=== PATIENT | female | born 1990 | race Caucasian/White ===

== ENCOUNTER 2017-11-01 07:02 | Inpatient (IN) | payer OTHER ==
[2017-11-01] MEDS ORDERED: Ondansetron 4 MG/2 ML SDV IVPUSH PRN ×2 (07:51→09:00)
[2017-11-01] MEDS ORDERED: Sodium Chloride 0.9% 10 ML Syringe FLUSH PRN (07:51)
[2017-11-01] MEDS ORDERED: Oxytocin/Lactated Ringers 10 UNIT/1,000 ML BAG IV SCH ×3 (08:00→21:34)
--- NOTE | 2017-11-01 08:03 | PCM.LDHP ---
L&D History of Present Illness - General Date of Service: 11/01/17 Admit Problem/Dx: Patient Status Order with Admit Dx/Problem 11/01/17 07:51 Patient Status [ADT] Routine Admission Diagnosis/Problem Admission Diagnosis/Problem History of delivery affecting Source of Information: Patient History Limitations: Reports: No Limitations - History of Present Illness Introduction:: Chary Emanuel is a 27 year old at 41 weeks 2 days by LMP consistent with 7 week ultrasound who presents for trial labor after section. Her previous section was done at 40 weeks' gestational age for breech presentation without labor. She reports that recently she has had continued contractions but nothing regular. She thinks that she may have lost her mucous plug yesterday but no watery vaginal discharge. Denies any vaginal bleeding. Reports good movement. Timing/Duration: Reports: intermittent Location, : Reports: Abdomen, Pelvic Quality: Reports: Pressure Severity: Mild Improves with: Reports: None Worsens with: Reports: None Associated Symptoms: Denies: vaginal bleeding, vaginal discharge, vaginal fluid Present Illness Comments:: Chary Emanuel is a 27 year old at 41 weeks 2 days by LMP and consistent with 7 week ultrasound. She has had routine care since 7 weeks gestational age. Her initial labs showed O+ blood type with negative antibody screen. Her hematocrit was 39.2 and hemoglobin of 13.1 on 04/08/2017. Her platelets were 242. Her Pap smear at that time was LGSIL and she underwent colposcopy that was consistent with YARY-1 with plan for repeat after delivery. She is rubella immune. RPR was nonreactive. She had a negative hepatitis B surface antigen negative HIV. Her urine culture was negative. She was negative for gonorrhea and chlamydia. She had a normal anatomy scan. Her 1 hour glucose tolerance screen was 103. Recheck of her blood count on showed hematocrit of 34.6 and hemoglobin 11.3 with platelets of 211. Her GBS was negative. Her has been complicated by history of section desiring a trial of labor. Initial section was done for breech presentation with failed external cephalic version. Other complications include L CHICA Pap smear with colposcopy performed in suspected YARY -1. Plan is to repeat after delivery. She has a history of rheumatic fever as a child without any cardiac complications. She received TDaP vaccine on 2017. - Related Data Allergies/Adverse Reactions: Allergies Allergy/AdvReac Type Severity Reaction Status Date / Time No Known Allergies Allergy Verified 11/01/17 08:28 Past Medical History : 2 Para: 1 Immunologic History: Reports: Other (See Below) (Rheumatic fever as child) - Past Surgical History Female Surgical History: Reports: Section Social & Family History - Tobacco Use Smoking Status *Q: Never Smoker - Alcohol Use Alcohol Use History: No - Recreational Drug Use Recreational Drug Use: No H&P Review of Systems - Review of Systems: Review Of Systems: See Below General: Denies: Fever, Chills HEENT: Denies: Hearing Changes, Rhinitis, Post Nasal Drip, Sinus Congestion, Sore Throat, Visual Changes Pulmonary: Denies: Shortness of Breath, Wheezing, Cough Cardiovascular: Denies: Chest Pain, Palpitations Gastrointestinal: Denies: Abdominal Pain, Constipation, Diarrhea, Nausea, Vomiting Genitourinary: Denies: Dysuria, Frequency, Burning, Pain, Urgency Musculoskeletal: Reports: Arm Pain (For one day yesterday, resolved spontaneously). Denies: Back Pain Skin: Denies: Rash, Change in Color Psychiatric: Denies: Depression, Anxiety Neurological: Denies: Headache Hematologic/Lymphatic: Denies: Anemia, Easy Bleeding L&D Exam - Exam Exam: See Below - OB Specific Contraction Duration (sec): 0 Contraction Frequency (min): 0 Movement: Active Heart Tones: Present Heart Tones per Min: 130 (positive 15 x 15 accelerations) Heart Rate (FHR) Variability: Moderate (6-25 bmp) Presentation: Vertex Estimated Weight: 7.5-8 lbs by [place] - Jeffrey Score Jeffrey Score Cervix Position: Midposition Jeffrey Score Consistency: Medium Jeffrey Score Effacement: >80% Jeffrey Score Dilation: 1-2 cm Jeffrey Score Infant's Station: -3 Jeffrey Score Total: 6 - Exam General: Alert, Oriented HEENT: Conjunctiva Clear, EOMI Neck: Supple, Trachea Midline Lungs: Clear to Auscultation, Normal Respiratory Effort Cardiovascular: Regular Rate, Regular Rhythm GI/Abdominal Exam: Soft, Non-Tender, No Distention, Other (gravid). No: Guarding, Rigid, Rebound Genitourinary: Normal external exam, Other (16 [place] De Paz bulb placed manually through the cervix and filled with 50 mL of sterile water.) Back Exam: Normal Inspection, Full Range of Motion Extremities: Normal Inspection, No Pedal Edema Skin: Warm, Dry, Intact Psychiatric: Alert, Normal Affect, Normal Mood - Patient Data Result Diagrams: 11/01/17 08:30 - Problem List (1) 41 weeks gestation of SNOMED Code(s): 49894083 ICD Code: Z3A.41 - 41 WEEKS GESTATION OF Status: Acute Current Visit: Yes (2) History of section, low transverse SNOMED Code(s): 070029649 ICD Code: Z98.891 - HISTORY OF UTERINE SCAR FROM PREVIOUS SURGERY Status: Acute Current Visit: Yes (3) History of rheumatic fever SNOMED Code(s): 694281459 ICD Code: Z86.79 - PERSONAL HISTORY OF OTHER DISEASES OF THE CIRCULATORY SYSTEM Status: Acute Current Visit: Yes (4) Abnormal Pap smear of cervix SNOMED Code(s): 266220280 ICD Code: R87.619 - UNSP ABNORMAL CYTOLOG FINDINGS IN SPECMN FROM CERVIX UTERI Status: Acute Current Visit: Yes Problem List Initiated/Reviewed/Updated: Yes Orders Last 24hrs: Active Orders 24 hr Category Date Time Status Patient Status [ADT] Routine ADT 11/01/17 07:51 Ordered Activity as Tolerated [RC] PFP Care 11/01/17 07:51 Ordered Communication Order [RC] ASDIRECTED Care 11/01/17 07:51 Ordered Heart Tones [RC] ASDIRECTED Care 11/01/17 07:52 Ordered Notify Provider Vital Signs [RC] PRN Care 11/01/17 07:53 Ordered Notify Provider [RC] PFP Care 11/01/17 07:51 Ordered Notify Provider [RC] PRN Care 11/01/17 07:51 Ordered Peripheral IV Care [RC] . DIRECTED Care 11/01/17 07:52 Ordered Pump Management, Intrathecal [RC] ASDIRECTED Care 11/01/17 07:53 Ordered Urinary Catheter Assessment [RC] ASDIRECTED Care 11/01/17 07:51 Ordered Vital Signs [RC] PER UNIT ROUTINE Care 11/01/17 07:51 Ordered Regular Diet [DIET] Diet 11/01/17 Breakfast Ordered CBC W/O DIFF,HEMOGRAM [HEME] Routine Lab 11/01/17 07:51 Ordered RAPID PLASMA REAGIN,RPR [CHEM] Routine Lab 11/01/17 07:55 Ordered TYPE AND SCREEN [BBK] Routine Lab 11/01/17 07:51 Ordered Lactated Ringers [Ringers, Lactated] 1,000 ml Med 11/01/17 08:00 Ordered IV ASDIRECTED Ondansetron [Zofran] Med 11/01/17 07:51 Ordered 4 mg IVPUSH Q4H PRN Oxytocin/Lactated Ringers [Pitocin in LR 10 Units/1,000 Med 11/01/17 08:00 Ordered ML] 10 unit in 1,000 ml IV .CONTINUOUS Oxytocin/Lactated Ringers [Pitocin in LR 10 Units/1,000 Med 11/01/17 08:00 Ordered ML] 10 unit in 1,000 ml IV TITRATE Sodium Chloride 0.9% [Saline Flush] Med 11/01/17 07:51 Ordered 10 ml FLUSH ASDIRECTED PRN Electronic Heart Tones Ext w TOCO [WOMSER] Oth 11/01/17 07:51 Ordered Routine Electronic Heart Tones Internal [WOMSER] Per Unit Oth 11/01/17 07:51 Ordered Routine Peripheral IV Insertion Adult [OM.PC] Routine Oth 11/01/17 07:51 Ordered Resuscitation Status Routine Resus Stat 11/01/17 07:51 Ordered Medication Orders Lactated Ringer's (Ringers, Lactated) 1,000 mls @ 100 mls/hr IV ASDIRECTED FLAVIO Oxytocin/Lactated Ringer's (Pitocin In Lr 10 Units/1,000 Ml) 10 unit in 1,000 mls @ 100 mls/hr IV .CONTINUOUS FLAVIO Oxytocin/Lactated Ringer's (Pitocin In Lr 10 Units/1,000 Ml) 10 unit in 1,000 mls @ 12 mls/hr IV TITRATE FLAVIO; Protocol Ondansetron HCl (Zofran) 4 mg IVPUSH Q4H PRN PRN Reason: Nausea/Vomiting Sodium Chloride (Saline Flush) 10 ml FLUSH ASDIRECTED PRN PRN Reason: Keep Vein Open Assessment/Plan Comment:: Refer to observation for elective induction of labor Start induction of labor with Pitocin and increase per unit protocol. De Paz bulb placed during exam for mechanical dilation Continuous monitoring during induction of labor Place IV and have Lactated Ringer's at 125 ml/hr May have small amounts of regular diet during induction Activity as tolerated May have epidural as desired Plans to breast-feed after delivery Anticipate vaginal delivery unless otherwise indicated Jostin Lee M.D. 9:15 AM 11/01/2017
[2017-11-01] MEDS ORDERED: fentaNYL 100 MCG/2 ML SDV EPIDUR PRN (09:00)
[2017-11-01] MEDS ORDERED: ePHEDrine 50 MG/ML SDV IVPUSH PRN (09:00)
[2017-11-01] MEDS ORDERED: diphenhydrAMINE 50 MG/ML SDV IVPUSH PRN (09:00)
[2017-11-01] MEDS ORDERED: Bupivacaine/fentaNYL/NS 100 ML Bag EPIDUR SCH ×2 (09:00→17:15)
--- NOTE | 2017-11-01 09:03 | PCM.PREANE ---
Preanesthetic Assessment - Review of Systems General: No Symptoms Pulmonary: No Symptoms Cardiovascular: No Symptoms, Other (Rheumatic Fever as a child. Patient states her heart valves were checked and she does not have any problems. ) Gastrointestinal: No Symptoms Neurological: Other (Back pain with ) Other: Reports: None - Physical Assessment ASA Class: 2 Mental Status: Alert & Oriented x3 Airway Class: Mallampati = 1 Dentition: Reports: Caries (Black at gumline.) Thyro-Mental Finger Breadths: 3 Mouth Opening Finger Breadths: 3 ROM/Head Extension: Full Lungs: Clear to Auscultation, Normal Respiratory Effort Cardiovascular: Regular Rate, Regular Rhythm - Lab Values: Laboratory Last Values WBC 7.43 K/mm3 (3.98-10.04) 11/01/17 08:30 RBC 3.86 M/mm3 (3.98-5.22) L 11/01/17 08:30 Hgb 10.9 gm/L (11.2-15.7) L 11/01/17 08:30 Hct 32.8 % (34.1-44.9) L 11/01/17 08:30 MCV 85.0 fl (79.4-94.8) 11/01/17 08:30 MCH 28.2 pg (25.6-32.2) 11/01/17 08:30 MCHC 33.2 g/dl (32.2-35.5) 11/01/17 08:30 RDW Std Deviation 41.6 fL (36.4-46.3) 11/01/17 08:30 Plt Count 180 K/mm3 (182-369) L 11/01/17 08:30 MPV 12.3 fl (9.4-12.3) 11/01/17 08:30 - Allergies Allergies/Adverse Reactions: Allergies Allergy/AdvReac Type Severity Reaction Status Date / Time No Known Allergies Allergy Verified 11/01/17 08:28 - Acknowledgements Anesthesia Type Planned: Epidural Pt an Appropriate Candidate for the Planned Anesthesia: Yes Alternatives and Risks of Anesthesia Discussed w Pt/Guardian: Yes Pt/Guardian Understands and Agrees with Anesthesia Plan: Yes PreAnesthesia Questionnaire Immunologic History: Reports: Other (See Below) (Rheumatic fever as child) - Past Surgical History Female Surgical History: Reports: Section - SUBSTANCE USE Smoking Status *Q: Never Smoker Recreational Drug Use History: No - CURRENT (IN HOUSE) MEDS Current Meds: Current Medications Lactated Ringer's (Ringers, Lactated) 1,000 mls @ 100 mls/hr IV ASDIRECTED FLAVIO Oxytocin/Lactated Ringer's (Pitocin In Lr 10 Units/1,000 Ml) 10 unit in 1,000 mls @ 100 mls/hr IV .CONTINUOUS FLAVIO Oxytocin/Lactated Ringer's (Pitocin In Lr 10 Units/1,000 Ml) 10 unit in 1,000 mls @ 12 mls/hr IV TITRATE FLAVIO; Protocol Ondansetron HCl (Zofran) 4 mg IVPUSH Q4H PRN PRN Reason: Nausea/Vomiting Sodium Chloride (Saline Flush) 10 ml FLUSH ASDIRECTED PRN PRN Reason: Keep Vein Open
[2017-11-01] MEDS: Lactated Ringers 1,000 ML IV SCH ×3 (11:27→19:15)
--- NOTE | 2017-11-01 13:11 | PCM.PREANE ---
Preanesthetic Assessment - Anesthesia/Transfusion/Family Hx Anesthesia History: Prior Anesthesia Without Reaction Family History of Anesthesia Reaction: No - Review of Systems General: No Symptoms Pulmonary: No Symptoms Cardiovascular: No Symptoms Gastrointestinal: No Symptoms Neurological: Other (Back pain with .) Other: Reports: None - Physical Assessment Pulse: 88 O2 Sat by Pulse Oximetry: 98 Respiratory Rate: 16 Blood Pressure: 141/91 Height: 1.73 m Weight: 111.402 kg ASA Class: 2 Mental Status: Alert & Oriented x3 Airway Class: Mallampati = 2 Dentition: Reports: Missing Tooth/Teeth, Caries (Black decay noted at gumline) Thyro-Mental Finger Breadths: 3 Mouth Opening Finger Breadths: 3 ROM/Head Extension: Full Lungs: Clear to Auscultation, Normal Respiratory Effort Cardiovascular: Regular Rate, Regular Rhythm - Lab Values: Laboratory Last Values WBC 7.43 K/mm3 (3.98-10.04) 11/01/17 08:30 RBC 3.86 M/mm3 (3.98-5.22) L 11/01/17 08:30 Hgb 10.9 gm/L (11.2-15.7) L 11/01/17 08:30 Hct 32.8 % (34.1-44.9) L 11/01/17 08:30 MCV 85.0 fl (79.4-94.8) 11/01/17 08:30 MCH 28.2 pg (25.6-32.2) 11/01/17 08:30 MCHC 33.2 g/dl (32.2-35.5) 11/01/17 08:30 RDW Std Deviation 41.6 fL (36.4-46.3) 11/01/17 08:30 Plt Count 180 K/mm3 (182-369) L 11/01/17 08:30 MPV 12.3 fl (9.4-12.3) 11/01/17 08:30 Blood Type O POSITIVE 11/01/17 08:30 Gel Antibody Screen Negative 11/01/17 08:30 - Allergies Allergies/Adverse Reactions: Allergies Allergy/AdvReac Type Severity Reaction Status Date / Time No Known Allergies Allergy Verified 11/01/17 08:28 - Blood Blood Available: Yes - Acknowledgements Anesthesia Type Planned: Epidural Pt an Appropriate Candidate for the Planned Anesthesia: Yes Alternatives and Risks of Anesthesia Discussed w Pt/Guardian: Yes Pt/Guardian Understands and Agrees with Anesthesia Plan: Yes PreAnesthesia Questionnaire Immunologic History: Reports: Other (See Below) (Rheumatic fever as child) - Past Surgical History Female Surgical History: Reports: Section - SUBSTANCE USE Smoking Status *Q: Never Smoker Recreational Drug Use History: No - CURRENT (IN HOUSE) MEDS Current Meds: Current Medications Diphenhydramine HCl (Benadryl) 25 mg IVPUSH Q6H PRN PRN Reason: Pruritis Ephedrine Sulfate (Ephedrine Sulfate) 5 mg IVPUSH ASDIRECTED PRN PRN Reason: Hypotension Fentanyl (Sublimaze) 100 mcg EPIDUR ONETIME PRN PRN Reason: Pain Fentanyl/Bupivacaine HCl (Fentanyl/Bupivacaine/Ns 2 Mcg-0.125% 100 Ml) 100 ml EPIDUR ASDIRECTED FLAVIO Lactated Ringer's (Ringers, Lactated) 1,000 mls @ 100 mls/hr IV ASDIRECTED FLAVIO Last Admin: 11/01/17 11:27 Dose: 100 mls/hr Oxytocin/Lactated Ringer's (Pitocin In Lr 10 Units/1,000 Ml) 10 unit in 1,000 mls @ 100 mls/hr IV .CONTINUOUS FLAVIO Oxytocin/Lactated Ringer's (Pitocin In Lr 10 Units/1,000 Ml) 10 unit in 1,000 mls @ 12 mls/hr IV TITRATE FLAVIO; Protocol Last Titration: 11/01/17 12:30 Dose: 6 munits/min, 36 mls/hr Ondansetron HCl (Zofran) 4 mg IVPUSH Q4H PRN PRN Reason: Nausea/Vomiting Ondansetron HCl (Zofran) 4 mg IVPUSH ONETIME PRN PRN Reason: Nausea/Vomiting Sodium Chloride (Saline Flush) 10 ml FLUSH ASDIRECTED PRN PRN Reason: Keep Vein Open
[2017-11-01] MEDS ORDERED: Pneumococcal Polyvalent-23 Vaccine 0.5 ML SDV IM ONE (18:34)
--- NOTE | 2017-11-01 19:15 | PCM.PNLD ---
Labor Progress Note - VS & Meds Vital Signs: Last Vital Signs Temp 36.3 C 11/01/17 09:15 Pulse 88 11/01/17 13:10 Resp 16 11/01/17 13:10 BP 141/91 H 11/01/17 13:10 Pulse Ox 98 11/01/17 13:10 Active Medications: Current Medications Diphenhydramine HCl (Benadryl) 25 mg IVPUSH Q6H PRN PRN Reason: Pruritis Last Admin: 11/01/17 18:00 Dose: 25 mg Ephedrine Sulfate (Ephedrine Sulfate) 5 mg IVPUSH ASDIRECTED PRN PRN Reason: Hypotension Fentanyl (Sublimaze) 100 mcg EPIDUR ONETIME PRN PRN Reason: Pain Last Admin: 11/01/17 17:30 Dose: 100 mcg Fentanyl/Bupivacaine HCl (Fentanyl/Bupivacaine/Ns 2 Mcg-0.125% 100 Ml) 100 ml EPIDUR ASDIRECTED FLAVIO Last Admin: 11/01/17 17:30 Dose: 100 ml Lactated Ringer's (Ringers, Lactated) 1,000 mls @ 100 mls/hr IV ASDIRECTED FLAVIO Last Admin: 11/01/17 16:37 Dose: 100 mls/hr Oxytocin/Lactated Ringer's (Pitocin In Lr 10 Units/1,000 Ml) 10 unit in 1,000 mls @ 100 mls/hr IV .CONTINUOUS FLAVIO Oxytocin/Lactated Ringer's (Pitocin In Lr 10 Units/1,000 Ml) 10 unit in 1,000 mls @ 12 mls/hr IV TITRATE FLAVIO; Protocol Last Titration: 11/01/17 18:20 Dose: 10 munits/min, 60 mls/hr Ondansetron HCl (Zofran) 4 mg IVPUSH Q4H PRN PRN Reason: Nausea/Vomiting Ondansetron HCl (Zofran) 4 mg IVPUSH ONETIME PRN PRN Reason: Nausea/Vomiting Sodium Chloride (Saline Flush) 10 ml FLUSH ASDIRECTED PRN PRN Reason: Keep Vein Open Discontinued Medications Fentanyl/Bupivacaine HCl (Fentanyl/Bupivacaine/Ns 2 Mcg-0.125% 100 Ml) 100 ml EPIDUR ASDIRECTED [facility] Pneumococcal Polyvalent Vaccine (Pneumovax 23) 0.5 ml IM .ONCE ONE Stop: 11/01/17 18:35 - Uterine Contractions Uterine Monitoring Mode: External [place] Contraction Frequency (min): 2 Contraction Duration (sec): 45-60 Contraction Intensity: Moderate to Strong Uterine Resting Tone: Soft - Monitoring Monitor Mode: Doppler/Auscultation Heart Rate (FHR) Baseline: 135 Heart Rate (FHR) Variability: Moderate (6-25 bmp) Accelerations: Present, 15x15 Decelerations: Variable (occasional), Intermittent (<50% x 20 min) Strip Review: Category II - Vaginal Exam Dilation (cm): 6 Effacement (Percent): 90 Station: -3 Cervical Position: Anterior - Labor Progress (Free Text) Labor Progress: Patient progressing well. On vaginal exam De Paz bulb was in the vaginal canal and cervix was dilated to 6/90/-3/soft/anterior. Able to feel fetus in vertex presentation. Patient with bulging bag on contraction. Due to this being chemical dilation will hold off on artificial rupture of membranes. Continue to monitor heart rate and contraction pattern. Anticipate vaginal delivery unless otherwise indicated. Jostin Lee MD 7:11 PM 11/01/2017
--- NOTE | 2017-11-01 20:54 | PCM.DEL ---
L & D Note - General Info Date of Service: 11/01/17 Mother's Due Date: 10/23/17 - Delivery Note Labor: Induced by Oxytocin Cervical Ripening Method: Balloon Device Delivery Outcome: Livebirth Infant Delivery Method: Spontaneous Vaginal Delivery-Single Presentation: Right Occiput Anterior (LEANDER) Nuchal Cord: None Prep: Povidone-Iodine (Betadine Anesthesia Type: Epidural Amniotic Fluid Description: Clear Episiotomy Type: None Laceration: 2nd Degree, Perineal (midline repaired with 3-0 Vicryl) Suture type: Vicryl Suture size: 3-0 Placenta: Intact, Spontaneous Cord: 3 Vessels Estimated Blood Loss: 400 Resuscitation Needed: No : Bulb Syringe, Stimulated, Warmed, [place] Used Provider: Jostin Lee Score 1 min: 8 Score 5 min: 9 Second Stage Interventions: Reports: Pushing Effectively, Pushing, Pulls Own Legs Back Delivery Comments (Free Text/Narrative):: Stage I: Chary Emanuel was admitted for medical induction of labor for late term. On admission her cervix was dilated to 2 cm. She was GBS negative. A 16 [place] De Paz bulb was placed through the cervix and filled with 50 cc of sterile water. She was started on pitocin for induction of labor. She was given an epidural for anesthesia. She was checked in the De Paz bulb came out spontaneously and her cervix was dilated to 6 cm. She had spontaneous rupture membranes with clear fluid. She progressed to complete and pushing. Stage II: On 11/01/2017 she had a normal vaginal delivery of a live male infant at 2020. Apgars of 8 & 9. Weight of 4220 g (9 lbs 5 oz). There was no nuchal cord. was delivered in LEANDER position. The cord was doubly clamped and cut by father of the . Infant was placed on mother's abdomen. Stage III: She had a spontaneous delivery of an intact placenta in [place] presentation. Three vessel cord. She was given pitocin and fundal massage. She had a second-degree midline laceration that was repaired in normal fashion using 3-0 Vicryl. Mom and baby were stable to recovery. EBL of 400 mL. Jostin Lee MD 9:03 PM 11/01/2017 - General Info Date of Service: 11/01/17 - Patient Data Vitals - Most Recent: Last Vital Signs Temp 36.3 C 11/01/17 09:15 Pulse 88 11/01/17 13:10 Resp 16 11/01/17 13:10 BP 141/91 H 11/01/17 13:10 Pulse Ox 98 11/01/17 13:10 Weight - Most Recent: 111.402 kg I&O - Last 24 Hours: Intake & Output 11/01/17 11/01/17 11/01/17 06:59 14:59 22:59 Intake Total 0 Balance 0 Lab Results Last 24 Hours: Laboratory Results - last 24 hr 11/01/17 11/01/17 11/01/17 Range/Units 08:30 08:30 08:30 WBC 7.43 (3.98-10.04) K/mm3 RBC 3.86 L (3.98-5.22) M/mm3 Hgb 10.9 L (11.2-15.7) gm/L Hct 32.8 L (34.1-44.9) % MCV 85.0 (79.4-94.8) fl MCH 28.2 (25.6-32.2) pg MCHC 33.2 (32.2-35.5) g/dl RDW Std Deviation 41.6 (36.4-46.3) fL Plt Count 180 L (182-369) K/mm3 MPV 12.3 (9.4-12.3) fl RPR Non-reactive (NONREACTIVE) Blood Type O POSITIVE Gel Antibody Screen Negative Med Orders - Current: Current Medications Diphenhydramine HCl (Benadryl) 25 mg IVPUSH Q6H PRN PRN Reason: Pruritis Last Admin: 11/01/17 18:00 Dose: 25 mg Ephedrine Sulfate (Ephedrine Sulfate) 5 mg IVPUSH ASDIRECTED PRN PRN Reason: Hypotension Fentanyl (Sublimaze) 100 mcg EPIDUR ONETIME PRN PRN Reason: Pain Last Admin: 11/01/17 17:30 Dose: 100 mcg Fentanyl/Bupivacaine HCl (Fentanyl/Bupivacaine/Ns 2 Mcg-0.125% 100 Ml) 100 ml EPIDUR ASDIRECTED FLAVIO Last Admin: 11/01/17 17:30 Dose: 100 ml Lactated Ringer's (Ringers, Lactated) 1,000 mls @ 100 mls/hr IV ASDIRECTED FLAVIO Last Admin: 11/01/17 19:15 Dose: 100 mls/hr Oxytocin/Lactated Ringer's (Pitocin In Lr 10 Units/1,000 Ml) 10 unit in 1,000 mls @ 100 mls/hr IV .CONTINUOUS FLAVIO Oxytocin/Lactated Ringer's (Pitocin In Lr 10 Units/1,000 Ml) 10 unit in 1,000 mls @ 12 mls/hr IV TITRATE FLAVIO; Protocol Last Titration: 11/01/17 18:20 Dose: 10 munits/min, 60 mls/hr Ondansetron HCl (Zofran) 4 mg IVPUSH Q4H PRN PRN Reason: Nausea/Vomiting Ondansetron HCl (Zofran) 4 mg IVPUSH ONETIME PRN PRN Reason: Nausea/Vomiting Sodium Chloride (Saline Flush) 10 ml FLUSH ASDIRECTED PRN PRN Reason: Keep Vein Open Discontinued Medications Fentanyl/Bupivacaine HCl (Fentanyl/Bupivacaine/Ns 2 Mcg-0.125% 100 Ml) 100 ml EPIDUR ASDIRECTED FLAVIO Pneumococcal Polyvalent Vaccine (Pneumovax 23) 0.5 ml IM .ONCE ONE Stop: 11/01/17 18:35 - Problem List & Annotations (1) 41 weeks gestation of SNOMED Code(s): 12265812 Code(s): Z3A.41 - 41 WEEKS GESTATION OF Status: Acute Current Visit: Yes (2) History of section, low transverse SNOMED Code(s): 442106064 Code(s): Z98.891 - HISTORY OF UTERINE SCAR FROM PREVIOUS SURGERY Status: Acute Current Visit: Yes (3) History of rheumatic fever SNOMED Code(s): 724023311 Code(s): Z86.79 - PERSONAL HISTORY OF OTHER DISEASES OF THE CIRCULATORY SYSTEM Status: Acute Current Visit: Yes (4) Abnormal Pap smear of cervix SNOMED Code(s): 260115249 Code(s): R87.619 - UNSP ABNORMAL CYTOLOG FINDINGS IN SPECMN FROM CERVIX UTERI Status: Acute Current Visit: Yes (5) Vaginal delivery following previous section, delivered SNOMED Code(s): 592396634 Code(s): O34.219 - MATERNAL CARE FOR UNSP TYPE SCAR FROM PREVIOUS DEL Status: Acute Current Visit: Yes (6) Second degree perineal laceration during delivery SNOMED Code(s): 8868843 Code(s): O70.1 - SECOND DEGREE PERINEAL LACERATION DURING DELIVERY Status: Acute Current Visit: Yes - Problem List Review Problem List Initiated/Reviewed/Updated: Yes - My Orders Last 24 Hours: My Active Orders 11/01/17 07:51 Patient Status [ADT] Routine Activity as Tolerated [RC] PFP Communication Order [RC] ASDIRECTED Notify Provider [RC] PFP Notify Provider [RC] PRN Urinary Catheter Assessment [RC] ASDIRECTED Vital Signs [RC] PER UNIT ROUTINE Ondansetron [Zofran] 4 mg IVPUSH Q4H PRN Sodium Chloride 0.9% [Saline Flush] 10 ml FLUSH ASDIRECTED PRN Electronic Heart Tones Ext w TOCO [WOMSER] Routine Electronic Heart Tones Internal [WOMSER] Per Unit Routine Peripheral IV Insertion Adult [OM.PC] Routine Resuscitation Status Routine 11/01/17 07:52 Heart Tones [RC] ASDIRECTED Peripheral IV Care [RC] . DIRECTED 11/01/17 07:53 Notify Provider Vital Signs [RC] PRN Pump Management, Intrathecal [RC] ASDIRECTED 11/01/17 08:00 Lactated Ringers [Ringers, Lactated] 1,000 ml IV ASDIRECTED Oxytocin/Lactated Ringers [Pitocin in LR 10 Units/1,000 ML] 10 unit in 1,000 ml IV .CONTINUOUS Oxytocin/Lactated Ringers [Pitocin in LR 10 Units/1,000 ML] 10 unit in 1,000 ml IV TITRATE 11/01/17 Breakfast Regular Diet [DIET] - Plan Plan:: Admit to inpatient following [normal] [spontaneous] vaginal delivery after section Continue Pitocin per unit protocol following delivery of placenta and lactated Ringer's until tolerating regular diet [Regular] diet Vitals per unit routine Ibuprofen and Tylenol for pain control Assist with [breast-feeding] as needed Continue to monitor lochia Anticipate discharge home on day [#1] Jostin Lee MD 9:05 PM 11/01/2017
[2017-11-01] MEDS ORDERED: Docusate Sodium 100 MG Cap PO PRN (21:34)
[2017-11-01] MEDS ORDERED: Benzocaine/Menthol 20%-0.5% Spray 56 GM Canister TOP PRN (21:34)
[2017-11-01] MEDS ORDERED: Lanolin 100% Cream 7 GM Tube TOP PRN (21:34)
[2017-11-01] MEDS ORDERED: Acetaminophen 325 MG Tab PO PRN (21:34)
[2017-11-01] MEDS ORDERED: Witch Hazel Medicated Pads 100/Jar TOP PRN (21:34)
[2017-11-01] MEDS ORDERED: Hydrocortisone Acetate 25 MG Supp RECTAL PRN (21:34)
[2017-11-01] MEDS ORDERED: Bupivacaine 0.25% 10 ML SDV ONE (22:00)
[2017-11-02] MEDS: Ibuprofen 600 MG Tab PO PRN ×3 (04:00→19:46)
--- NOTE | 2017-11-02 08:14 | PCM.SN ---
- Free Text/Narrative Note: Post Progress Note PPD #1 Subjective: Doing well overall. Ambulating without difficulty. Lochia minimal. Voiding without difficulty. Tolerating regular diet without nausea or vomiting. Pain controlled with oral medications. Breast-fed once last night without difficulty and has been pumping for the remainder the night. Objective: Vitals: Vital Signs - 24 hr 11/01/17 11/01/17 11/01/17 09:15 13:10 23:48 Temperature 36.6 C Temperature [ 36.3 C Temporal] Pulse, 88 97 Peripheral Pulse, 87 Peripheral [ Pulse Oximetry] Respiratory 18 16 15 Rate Blood Pressure 141/91 H 115/64 Blood Pressure 143/86 H [Upper Arm] O2 Sat by Pulse 98 98 100 Oximetry 11/02/17 02:19 Temperature 36.6 C Temperature [ Temporal] Pulse, 96 Peripheral Pulse, Peripheral [ Pulse Oximetry] Respiratory 15 Rate Blood Pressure 121/60 Blood Pressure [Upper Arm] O2 Sat by Pulse 96 Oximetry Physical Exam General: Alert and oriented, no acute distress Lungs: Clear to auscultation bilaterally Heart: Regular rate and rhythm Abdomen: Soft, minimal appropriate tenderness, non-distended, fundus midline, nontender, and below the umbilicus Extremities: No edema Laboratory Results - last 24 hr 11/01/17 11/01/17 11/01/17 Range/Units 08:30 08:30 08:30 WBC 7.43 (3.98-10.04) K/mm3 RBC 3.86 L (3.98-5.22) M/mm3 Hgb 10.9 L (11.2-15.7) gm/L Hct 32.8 L (34.1-44.9) % MCV 85.0 (79.4-94.8) fl MCH 28.2 (25.6-32.2) pg MCHC 33.2 (32.2-35.5) g/dl RDW Std Deviation 41.6 (36.4-46.3) fL Plt Count 180 L (182-369) K/mm3 MPV 12.3 (9.4-12.3) fl RPR Non-reactive (NONREACTIVE) Blood Type O POSITIVE Gel Antibody Screen Negative ASSESSMENT: 27-year-old female G 2 P 2002 s/p normal vaginal delivery after section PPD #1, complicated by history of section for breech presentation, abnormal Pap smear and rheumatic fever as a child PLAN: Doing well Pumping breastmilk with minimal difficulty. Assist as needed Lochia minimal. Continue to monitor for appropriate lochia. Continue routine care was transferred to nursery for breathing concerns RPR negative Monitor for signs and symptoms of anemia. If concerns consider repeat CBC to check for acute blood loss anemia following delivery. Anticipate discharge home today if infant is able to be discharged home Jostin Lee MD 8:11 AM 11/02/2017
--- NOTE | 2017-11-02 08:26 | PCM.DCSUM1 ---
Discharge Summary - Hospital Course Free Text/Narrative:: Stage I: Chary Emanuel was admitted for medical induction of labor for late term. On admission her cervix was dilated to 2 cm. She was GBS negative. A 16 [place] bulb was placed through the cervix and filled with 50 cc of sterile water. She was started on pitocin for induction of labor. She was given an epidural for anesthesia. She was checked in the [place] bulb came out spontaneously and her cervix was dilated to 6 cm. She had spontaneous rupture membranes with clear fluid. She progressed to complete and pushing. Stage II: On 11/01/2017 she had a normal vaginal delivery of a live male infant at 2019. Apgars of 8 & 9. Weight of 4220 g (9 lbs 5 oz). There was no nuchal cord. Infant was delivered in LEANDER position. The cord was doubly clamped and cut by father of the infant. Infant was placed on mother's abdomen. Stage III: She had a spontaneous delivery of an intact placenta in [place] presentation. Three vessel cord. She was given pitocin and fundal massage. She had a second-degree midline laceration that was repaired in normal fashion using 3-0 Vicryl. Mom and baby were stable to recovery. EBL of 400 mL. HPI Initial Comments: Stage I: Chary Emanuel was admitted for medical induction of labor for late term. On admission her cervix was dilated to 2 cm. She was GBS negative. A 16 [place] bulb was placed through the cervix and filled with 50 cc of sterile water. She was started on pitocin for induction of labor. She was given an epidural for anesthesia. She was checked in the [place] bulb came out spontaneously and her cervix was dilated to 6 cm. She had spontaneous rupture membranes with clear fluid. She progressed to complete and pushing. Stage II: On 11/01/2017 she had a normal vaginal delivery of a live male at 2020. Apgars of 8 & 9. Weight of 4220 g (9 lbs 5 oz). There was no nuchal cord. was delivered in LEANDER position. The cord was doubly clamped and cut by father of the . was placed on mother's abdomen. Stage III: She had a spontaneous delivery of an intact placenta in [place] presentation. Three vessel cord. She was given pitocin and fundal massage. She had a second-degree midline laceration that was repaired in normal fashion using 3-0 Vicryl. Mom and baby were stable to recovery. EBL of 400 mL. Brief History: Stage I: Chary Emanuel was admitted for medical induction of labor for late term. On admission her cervix was dilated to 2 cm. She was GBS negative. A 16 [place] bulb was placed through the cervix and filled with 50 cc of sterile water. She was started on pitocin for induction of labor. She was given an epidural for anesthesia. She was checked in the [place] bulb came out spontaneously and her cervix was dilated to 6 cm. She had spontaneous rupture membranes with clear fluid. She progressed to complete and pushing. Stage II: On 11/01/2017 she had a normal vaginal delivery of a live male at 2020. Apgars of 8 & 9. Weight of 4220 g (9 lbs 5 oz). There was no nuchal cord. Infant was delivered in LEANDER position. The cord was doubly clamped and cut by father of the . was placed on mother's abdomen. Stage III: She had a spontaneous delivery of an intact placenta in [place] presentation. Three vessel cord. She was given pitocin and fundal massage. She had a second-degree midline laceration that was repaired in normal fashion using 3-0 Vicryl. Mom and baby were stable to recovery. EBL of 400 mL. - Discharge Data Discharge Date: 11/03/17 Discharge Disposition: Home, Self-Care 01 Condition: Good - Discharge Diagnosis/Problem(s) (1) 41 weeks gestation of SNOMED Code(s): 46729358 ICD Code: Z3A.41 - 41 WEEKS GESTATION OF Status: Acute Current Visit: Yes (2) History of section, low transverse SNOMED Code(s): 099977230 ICD Code: Z98.891 - HISTORY OF UTERINE SCAR FROM PREVIOUS SURGERY Status: Acute Current Visit: Yes (3) History of rheumatic fever SNOMED Code(s): 559369371 ICD Code: Z86.79 - PERSONAL HISTORY OF OTHER DISEASES OF THE CIRCULATORY SYSTEM Status: Acute Current Visit: Yes (4) Abnormal Pap smear of cervix SNOMED Code(s): 187006231 ICD Code: R87.619 - UNSP ABNORMAL CYTOLOG FINDINGS IN SPECMN FROM CERVIX UTERI Status: Acute Current Visit: Yes (5) Vaginal delivery following previous section, delivered SNOMED Code(s): 373205303 ICD Code: O34.219 - MATERNAL CARE FOR UNSP TYPE SCAR FROM PREVIOUS DEL Status: Acute Current Visit: Yes (6) Second degree perineal laceration during delivery SNOMED Code(s): 3515874 ICD Code: O70.1 - SECOND DEGREE PERINEAL LACERATION DURING DELIVERY Status : Acute Current Visit: Yes - Patient Summary/Data Complications: None Consults: None Hospital Course: Chary Emanuel was admitted for medical induction of labor in the setting of late term. On admission her cervix was dilated to 2 cm. She was GBS negative. She had a [place] bulb placed for cervical ripening. She was given pitocin for augmentation. [She was given an epidural for anesthesia.] She had spontaneous rupture of membranes with clear fluid. She progressed to complete and began pushing. On 11/01/2017 she had a normal vaginal delivery after section of a [live] male at 2020. Apgars of 8 & 9. Weight of 4220 g. Her course was uneventful. Her pain was well controlled and she had minimal lochia. She was ambulating, tolerating a regular diet and voiding normally. She was breast feeding and pumping breastmilk. She was afebrile and her hematocrit was 32.8 on admission. was transferred to level 2 nursery care due to difficulty breathing after delivery. She desired to be discharged home on the afternoon of PPD #2. Her blood type is O positive. Laboratory Results - last 24 hr 11/01/17 11/01/17 11/01/17 Range/Units 08:30 08:30 08:30 WBC 7.43 (3.98-10.04) K/mm3 RBC 3.86 L (3.98-5.22) M/mm3 Hgb 10.9 L (11.2-15.7) gm/L Hct 32.8 L (34.1-44.9) % MCV 85.0 (79.4-94.8) fl MCH 28.2 (25.6-32.2) pg MCHC 33.2 (32.2-35.5) g/dl RDW Std Deviation 41.6 (36.4-46.3) fL Plt Count 180 L (182-369) K/mm3 MPV 12.3 (9.4-12.3) fl RPR Non-reactive (NONREACTIVE) Blood Type O POSITIVE Gel Antibody Screen Negative - Patient Instructions Diet: Regular Diet as Tolerated Activity: Apply Ice, As Tolerated Activity, Other: Nothing in the vagina for 6 weeks Driving: May Drive Today Showering/Bathing: May Shower Notify Provider of: Fever, Increased Pain, Swelling and Redness, Drainage, Nausea and/or Vomiting Other/Special Instructions: Please call our office if you have heavy vaginal bleeding enough to soak a pad in less than an hour for several hours. - Discharge Plan Home Medications: Home Meds Acetaminophen [Tylenol] 650 mg PO Q6H PRN tablet 11/02/17 [Rx] Benzocaine/Menthol [Dermoplast Pain Relief [place]] 1 spray TOP ASDIRECTED PRN canister 11/02/17 [Rx] Docusate Sodium [Colace] 100 mg PO BID PRN cap 11/02/17 [Rx] Hydrocortisone Acetate [Anucort-HC] 25 mg RECTAL BID PRN supp 11/02/17 [Rx] Ibuprofen [Motrin] 600 mg PO Q6H PRN tablet 11/02/17 [Rx] Lanolin [Lansinoh HPA] 1 applic TOP ASDIRECTED PRN tube 11/02/17 [Rx] Witch Elvia [Tucks] 1 pad TOP ASDIRECTED PRN pad 11/02/17 [Rx] Patient Handouts: Home Care Instructions for Mom, Vaginal Delivery, Care After , Care of a Perineal Tear Referrals: Jostin Lee MD [Primary Care Provider] - (Follow-up in 2 weeks for routine visit or earlier as needed.) - Discharge Summary/Plan Comment DC Time >30 min.: No - Patient Data Vitals - Most Recent: Last Vital Signs Temp 36.6 C 11/02/17 02:19 Pulse 96 11/02/17 02:19 Resp 15 11/02/17 02:19 BP 121/60 11/02/17 02:19 Pulse Ox 96 11/02/17 02:19 Weight - Most Recent: 111.402 kg I&O - Last 24 hours: Intake & Output 11/01/17 11/02/17 11/02/17 22:59 06:59 14:59 Intake Total 0 Balance 0 Lab Results - Last 24 hrs: Laboratory Results - last 24 hr 11/01/17 11/01/17 11/01/17 Range/Units 08:30 08:30 08:30 WBC 7.43 (3.98-10.04) K/mm3 RBC 3.86 L (3.98-5.22) M/mm3 Hgb 10.9 L (11.2-15.7) gm/L Hct 32.8 L (34.1-44.9) % MCV 85.0 (79.4-94.8) fl MCH 28.2 (25.6-32.2) pg MCHC 33.2 (32.2-35.5) g/dl RDW Std Deviation 41.6 (36.4-46.3) fL Plt Count 180 L (182-369) K/mm3 MPV 12.3 (9.4-12.3) fl RPR Non-reactive (NONREACTIVE) Blood Type O POSITIVE Gel Antibody Screen Negative Med Orders - Current: Current Medications Acetaminophen (Tylenol) 650 mg PO Q6H PRN PRN Reason: mild pain or fever Benzocaine/Menthol (Dermoplast Pain Relief Topmost) 0 gm TOP ASDIRECTED PRN PRN Reason: Perineal Comfort Measure Last Admin: 11/02/17 04:02 Dose: 1 canister Docusate Sodium (Colace) 100 mg PO BID PRN PRN Reason: Constipation Emollient Ointment (Lansinoh Hpa) 0 gm TOP ASDIRECTED PRN PRN Reason: Sore Nipples Hydrocortisone Acetate (Anucort-Hc) 25 mg RECTAL BID PRN PRN Reason: Hemorrhoid pain Oxytocin/Lactated Ringer's (Pitocin In Lr 10 Units/1,000 Ml) 10 unit in 1,000 mls @ 100 mls/hr IV TITRATE FLAVIO; Protocol Ibuprofen (Motrin) 600 mg PO Q6H PRN PRN Reason: Mild pain or fever Last Admin: 11/02/17 04:00 Dose: 600 mg Witch Elvia (Tucks) 1 pad TOP ASDIRECTED PRN PRN Reason: Hemorrhoid pain Last Admin: 11/02/17 04:01 Dose: 1 tub Discontinued Medications Diphenhydramine HCl (Benadryl) 25 mg IVPUSH Q6H PRN PRN Reason: Pruritis Last Admin: 11/01/17 18:00 Dose: 25 mg Ephedrine Sulfate (Ephedrine Sulfate) 5 mg IVPUSH ASDIRECTED PRN PRN Reason: Hypotension Fentanyl (Sublimaze) 100 mcg EPIDUR ONETIME PRN PRN Reason: Pain Last Admin: 11/01/17 17:30 Dose: 100 mcg Fentanyl/Bupivacaine HCl (Fentanyl/Bupivacaine/Ns 2 Mcg-0.125% 100 Ml) 100 ml EPIDUR ASDIRECTED FLAVIO Fentanyl/Bupivacaine HCl (Fentanyl/Bupivacaine/Ns 2 Mcg-0.125% 100 Ml) 100 ml EPIDUR ASDIRECTED FLAVIO Last Admin: 11/01/17 17:30 Dose: 100 ml Lactated Ringer's (Ringers, Lactated) 1,000 mls @ 100 mls/hr IV ASDIRECTED FLAVIO Last Admin: 11/01/17 19:15 Dose: 100 mls/hr Oxytocin/Lactated Ringer's (Pitocin In Lr 10 Units/1,000 Ml) 10 unit in 1,000 mls @ 100 mls/hr IV .CONTINUOUS FLAVIO Oxytocin/Lactated Ringer's (Pitocin In Lr 10 Units/1,000 Ml) 10 unit in 1,000 mls @ 12 mls/hr IV TITRATE FLAVIO; Protocol Last Titration: 11/01/17 18:20 Dose: 10 munits/min, 60 mls/hr Ondansetron HCl (Zofran) 4 mg IVPUSH Q4H PRN PRN Reason: Nausea/Vomiting Ondansetron HCl (Zofran) 4 mg IVPUSH ONETIME PRN PRN Reason: Nausea/Vomiting Pneumococcal Polyvalent Vaccine (Pneumovax 23) 0.5 ml IM .ONCE ONE Stop: 11/01/17 18:35 Last Admin: 11/02/17 05:58 Dose: Not Given Sodium Chloride (Saline Flush) 10 ml FLUSH ASDIRECTED PRN PRN Reason: Keep Vein Open
--- NOTE | 2017-11-03 08:09 | PCM.SN ---
- Free Text/Narrative Note: Post Progress Note PPD #2 Subjective: Doing well overall. Ambulating without difficulty. Lochia minimal. Voiding without difficulty. Tolerating regular diet without nausea or vomiting. Pain controlled with oral medications. Breast feeding without difficulty. Objective: Vitals: Vital Signs - 24 hr 11/02/17 11/02/17 11/02/17 08:10 14:35 21:43 Temperature 36.8 C 36.5 C 36.6 C Pulse, 78 87 79 Peripheral Respiratory 20 16 Rate Blood Pressure 135/80 111/62 123/65 O2 Sat by Pulse 97 97 99 Oximetry 11/03/17 02:21 Temperature 36.4 C Pulse, 76 Peripheral Respiratory 15 Rate Blood Pressure 114/50 L O2 Sat by Pulse 100 Oximetry Physical Exam General: Alert and oriented, no acute distress Lungs: Clear to auscultation bilaterally Heart: Regular rate and rhythm Abdomen: Soft, minimal appropriate tenderness, non-distended, fundus midline, nontender, and 1 fingerbreadth below the umbilicus Extremities: No edema ASSESSMENT: 27-year-old female G 2 P 2002 s/p normal vaginal delivery after section PPD #2, complicated by history of section for breech presentation, abnormal Pap smear and rheumatic fever as a child PLAN: Doing well Breast feeding with minimal difficulty. Assist as needed Lochia minimal. Continue to monitor for appropriate lochia. 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 Plan is for discharge tomorrow if continues to improve. RPR negative Monitor for signs and symptoms of anemia. If concerns consider repeat CBC to check for acute blood loss anemia following delivery. Discharge home today Jostin Lee MD 8:06 AM 11/03/2017
[2017-11-03] MEDS: Ibuprofen 600 MG Tab PO PRN (08:33)
== END 2017-11-03 14:45 | disposition home or self-care (01) | DRG 775 ==
LOC: JD.OB 07:02 → OBSVTOIN 18:19 → JD.OB 18:20
PROVIDERS: ADMIT Obstetrics & Gynecology; ATTEND Obstetrics & Gynecology
PROC: 3E033VJ Introduction of Other Hormone into Peripheral Vein, Percutaneous Approach (ICD-10-PCS; principal; 2017-11-01)
PROC: 0U7C7ZZ Dilation of Cervix, Via Natural or Artificial Opening (ICD-10-PCS; principal; 2017-11-01)
PROC: 0KQM0ZZ Repair Perineum Muscle, Open Approach (ICD-10-PCS; principal; 2017-11-01)
PROC: 10E0XZZ Delivery of Products of Conception, External Approach (ICD-10-PCS; principal; 2017-11-01)
PROC: 00HU33Z Insertion of Infusion Device into Spinal Canal, Percutaneous Approach (ICD-10-PCS; 2017-11-01)
PROC: 3E0R3BZ Introduction of Anesthetic Agent into Spinal Canal, Percutaneous Approach (ICD-10-PCS; 2017-11-01)
DX: O48.0 Post-term pregnancy (principal); Z3A.41 41 weeks gestation of pregnancy; O34.211 Maternal care for low transverse scar from previous cesarean delivery; N85.8 Other specified noninflammatory disorders of uterus; O70.1 Second degree perineal laceration during delivery; Z37.0 Single live birth
CPT/HCPCS: 01967; 36415; 51702; 59025; 59300; 59409; 85027; 86592; 86850; 86900; 86901; A9270-GY; J1200; J2590; J3010; J7120

== ENCOUNTER 2017-11-06 20:23 | Emergency (ER) | payer OTHER ==
--- NOTE | 2017-11-06 21:43 | EDM.PDOC ---
ED HPI GENERAL MEDICAL PROBLEM - General Chief Complaint: Fever Stated Complaint: FEVER Time Seen by Provider: 11/06/17 21:25 Source of Information: Reports: Patient, Significant Other (Boyfriend) History Limitations: Reports: No Limitations - History of Present Illness INITIAL COMMENTS - FREE TEXT/NARRATIVE: The patient states that she vaginally delivered a baby boy on 2017. There were vaginal tears, although not an episiotomy. The patient's wounds were sutured by her Facility Maintenance Manager, Dr. Lee. The patient is to follow-up with Dr. Lee on 11/15/2017. The patient now presents to the ED after having a temperature of 102.1 at home around 19:00 this evening. She took 400 mg of ibuprofen, and a repeat temperature was down to 99.1. She denies having a sore throat. No recent cough. No recent urinary symptoms. No recent nausea, vomiting, constipation, or diarrhea. She states that she has some uterine and vaginal discomfort, and is having a diminishing amount of vaginal bleeding, but denies that the pain is inordinate, and there has not been any purulent drainage. The patient does report, however, that she has had some central abdominal cramps today. The patient does not have a PCP. Abdomen Pain Score (Numeric/FACES): 2 - Related Data Allergies Allergy/AdvReac Type Severity Reaction Status Date / Time No Known Allergies Allergy Verified 11/01/17 08:28 Home Meds: Home Meds Acetaminophen [Tylenol] 650 mg PO Q6H PRN tablet 11/02/17 [Rx] Benzocaine/Menthol [Dermoplast Pain Relief [place]] 1 spray TOP ASDIRECTED PRN canister 11/02/17 [Rx] Docusate Sodium [Colace] 100 mg PO BID PRN cap 11/02/17 [Rx] Hydrocortisone Acetate [Anucort-HC] 25 mg RECTAL BID PRN supp 11/02/17 [Rx] Ibuprofen [Motrin] 600 mg PO Q6H PRN tablet 11/02/17 [Rx] Lanolin [Lansinoh HPA] 1 applic TOP ASDIRECTED PRN tube 11/02/17 [Rx] Witch Elvia [Tucks] 1 pad TOP ASDIRECTED PRN pad 11/02/17 [Rx] 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: Endocrine/Metabolic History: Reports: Obesity/BMI 30+ - Past Surgical History Female Surgical History: Reports: Section (x 1) Social & Family History - Family History Family Medical History: Noncontributory - Tobacco Use Smoking Status *Q: Never Smoker - Caffeine Use Caffeine Use: Reports: Coffee, Soda, Tea - Alcohol Use Alcohol Use History: Yes Alcohol Use Frequency: Socially - Recreational Drug Use Recreational Drug Use: No - Living Situation & Occupation Living situation: Reports: Single, with Significant Other (Boyfriend), with Family (2 kids) Occupation: Employed ([employer]) ED ROS GENERAL - Review of Systems Review Of Systems: ROS reveals no pertinent complaints other than HPI. ED EXAM, GENERAL - Physical Exam Exam: See Below Exam Limited By: No Limitations General Appearance: Alert, WD/WN, No Apparent Distress Ears: Normal External Exam, Hearing Grossly Normal Nose: Normal Inspection, No Blood Throat/Mouth: Normal Inspection, Normal Lips, Normal Voice, No Airway Compromise Head: Atraumatic, Normocephalic Neck: Normal Inspection, Full Range of Motion Respiratory/Chest: No Respiratory Distress, Lungs Clear, Normal Breath Sounds, No Accessory Muscle Use Cardiovascular: Normal Peripheral Pulses, Regular Rate, Rhythm, No Gallop, No JVD, No Murmur, No Rub Peripheral Pulses: 4+: Radial (L), Radial (R) GI/Abdominal: Normal Bowel Sounds, Soft, No Distention, No Abnormal Bruit, No Mass, Tender (Minimal, if any, central abdominal tenderness. Palpable uterus is appropriately tender.), Other (Obese) (Female) Exam: Deferred Rectal (Female) Exam: Deferred Back Exam: Normal Inspection, Full Range of Motion. No: CVA Tenderness (L), CVA Tenderness (R) Extremities: Normal Inspection, Normal Range of Motion, Normal Capillary Refill Neurological: Alert, Oriented, Normal Cognition, No Motor/Sensory Deficits Psychiatric: Normal Affect Skin Exam: Warm, Dry, Intact, Normal Color, No Rash Course - Vital Signs Last Recorded V/S: Last Vital Signs Temp 37.3 C 11/06/17 20:54 Pulse 102 H 11/06/17 20:54 Resp 20 11/06/17 20:54 BP 137/87 11/06/17 20:54 Pulse Ox 97 11/06/17 20:54 - Re-Assessments/Exams Free Text/Narrative Re-Assessment/Exam: 11/06/17 21:38 The patient sates that she had a fever of 102.1 at home after having a on 11/01/2017, but that she took ibuprofen, and the fever resolved. She is afebrile here in the ED, and has no complaints that might suggest a specific infection, such as a sore throat, cough, urinary symptoms, or diarrhea. She complains of some central abdominal pain, but her abdominal exam finds a soft abdomen with normal bowel sounds, and minimal, if any, central tenderness. She has some uterine tenderness, as would be expected. She has some vaginal discomfort following vaginal tears that were sutured, but denies inordinate pain or drainage. I recommended no other evaluation tonight, however, I would like the patient to follow-up with her Facility Maintenance Manager, Dr. Lee, within the next couple of days. Departure - Departure Time of Disposition: 21:40 Disposition: Home, Self-Care 01 Condition: Good Clinical Impression: Fever - Discharge Information Instructions: Fever, Adult Referrals: Jostin Lee MD [Primary Care Provider] - Forms: ED Department Discharge Additional Instructions: You were seen in the emergency room after having a fever of 102.1 at home, 5 days after vaginally delivering a baby. You did not have a fever in the emergency room, and her physical exam was unremarkable. No further workup was recommended. We do, however, recommend that you follow-up with your Facility Maintenance Manager, Dr. Lee, within the next 2 days. As discussed, fever itself does not require treatment, but he may treat the discomfort of fever with Tylenol or ibuprofen. Stay well hydrated. If any other problems, please do not hesitate to return to the ER.
== END 2017-11-06 21:45 | disposition home or self-care (01) ==
LOC: JD.ED 20:23
DX: O99.89 Other specified diseases and conditions complicating pregnancy, childbirth and the puerperium (principal); R50.9 Fever, unspecified
CPT/HCPCS: 99283